=== PATIENT | female | born 2005 | race Hispanic/Latino ===

== ENCOUNTER 2025-07-09 16:33 | Day surgery (SDC) | payer OTHER ==
[2025-07-09 17:01] VITALS: BMI 29.0
[2025-07-09 17:27] LABS: Fetal Membranes Rupture No Membranes Rupture (No Rupture)
[2025-07-09] MEDS ORDERED: hydrALAZINE 20 MG/ML VIAL SLOW IVP PRN (17:32)
== END 2025-07-09 19:00 | disposition home or self-care (01) ==
LOC: CSHLD/OP 16:33
PROVIDERS: ATTEND Family Medicine
DX: Z03.71 Encounter for suspected problem with amniotic cavity and membrane ruled out (principal); Z79.899 Other long term (current) drug therapy
CPT/HCPCS: 76815; 84112; 99285